=== PATIENT | male | born 1995 | race African-American/Black ===

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

== ENCOUNTER 2017-01-31 00:19 | Emergency (ER) | payer BC ==
[~2017-01-31] VITALS: Ht 182.9 cm; Wt 67.1 kg
[2017-01-31 00:39] VITALS: BP 127/82
[2017-01-31] MEDS ORDERED: TETANUS AND DIPHTHERIA TOX/PF 0.5 ML DISP.SYRIN. VAX IM ONE (01:00)
[2017-01-31] MEDS ORDERED: LIDOCAINE 1% / SOD BICARB 8.4% 20 ML VIAL. IJ ONE ×2 (01:26→02:00)
--- NOTE | 2017-01-31 01:59 | PHYS DOC ---
Past Medical History Past Medical History: No Pertinent History Past Surgical History: No Surgical History Alcohol Use: None Drug Use: None Adult General Chief Complaint Chief Complaint: GROIN PAIN HPI HPI 21-year-old male presenting to the emergency department with a 3 cm laceration to his scrotum that he reports happened when he was "wrestling". This occurred tonight. He has moderate to mild pain which is nonradiating intermittent and without alleviating factors. He denies accidentally cutting his scrotum. He denies any other she occasionally. Review of systems is negative for chest pain shortness of breath abdominal pain nausea vomiting. All other review of systems is negative unless otherwise noted in history of present illness. ED course: 21-year-old male presenting to the emergency department today with scrotal laceration. No other injuries noted. Mechanism of injury doesn't seem to match patient's story. I discussed the case with a urologist at [facility] because we do not have urology coverage here. I talked to Dr. Albarado recommended simple interrupted suture repair with absorbable sutures to follow-up with urology in 5-6 days. The wound is washed out in the emergency department in the laceration was repaired. The patient was in discharged home to follow-up with urology in 5 days. Review of Systems Review of Systems SEE ABOVE. Current Medications Current Medications Current Medications Medications (Trade) Dose Ordered Sig/Mago Start Time Stop Time Status Last Admin Dose Admin Lidocaine/Sodium Bicarbonate (Buffered Lidocaine 1%) 20 ml STK-MED ONCE 01/31/17 01:26 01/31/17 01:27 DC Tetanus/ Diphtheria Toxoids (Tenivac Syringe) 0.5 ml ONCE ONCE 01/31/17 01:00 01/31/17 01:01 DC 01/31/17 01:13 0.5 ML Allergies Allergies Allergies Coded Allergies Type Severity Reaction Last Updated Verified No Known Drug Allergies 05/18/16 No Physical Exam Physical Exam SEE ABOVE Constitutional: Well developed, well nourished, no acute distress, non-toxic appearance. [] HENT: Normocephalic, atraumatic, bilateral external ears normal, oropharynx moist, no oral exudates, nose normal. [] Eyes: PERRLA, EOMI, conjunctiva normal, no discharge. [] Neck: Normal range of motion, no tenderness, supple, no stridor. [] Cardiovascular:Heart rate regular rhythm, no murmur [] Lungs & Thorax: Bilateral breath sounds clear to auscultation [] Abdomen: Bowel sounds normal, soft, no tenderness, no masses, no pulsatile masses. [] exam: Penis is atraumatic and without any abnormalities. Scrotal sac shows 3 cm superficial laceration on the posterior aspect of the scrotum. No swelling erythema or any other abnormalities present. Testicles are normal in lie. Cremasteric reflex intact. Skin: Warm, dry, no erythema, no rash. [] Back: No tenderness, no CVA tenderness. [] Extremities: No tenderness, no cyanosis, no clubbing, ROM intact, no edema. [] Neurologic: Alert and oriented X 3, normal motor function, normal sensory function, no focal deficits noted. [] Psychologic: Affect normal, judgement normal, mood normal. [] Current Patient Data Vital Signs Vital Signs Date Time Temp Pulse Resp B/P (MAP) Pulse Ox O2 Delivery O2 Flow Rate FiO2 01/31/17 00:39 99.7 123 18 127/82 (97) 98 Room Air 99.7 EKG EKG [] Radiology/Procedures Radiology/Procedures [] Course & Med Decision Making Course & Med Decision Making Pertinent Labs and Imaging studies reviewed. (See chart for details) [] Dragon Disclaimer Dragon Disclaimer This electronic medical record was generated, in whole or in part, using a voice recognition dictation system. Departure Departure Impression: Primary Impression: Laceration of scrotum Disposition: HOME, SELF-CARE Condition: STABLE Referrals: UNKNOWN PCP NAME (PCP) Patient Instructions: Laceration Care, Adult Additional Instructions: Thank you for allowing us to participate in your care today. Followup with a urologist in 4-5 days at [facility]. Call [phone] to make an appointment. Call your Primary Doctor tomorrow and inform them of your visit today. If you do not have a primary care provider you can ask for a list of our primary care providers. Return to the emergency department you have any new or concerning findings. This should be evaluated by the primary care physician and any necessary consulting services for continued management within a few days after discharge. Return to emergency room if you have any new or concerning symptoms including but not limited to fever, chills, nausea, vomiting, intractable pain, any new rashes, chest pain, shortness of air, uncontrolled bleeding, difficulty breathing, and/or vision loss. Laceration Repair Lac Repair Indication: []Scrotal laceration Procedure: The patient was placed in the appropriate position and anesthesia around the laceration on the scrotum. 1% lidocaine was used. The area was cleansed with 1 L of saline along with Betadine. The laceration was then closed after verbal consultation with urology with absorbable sutures. 5 sutures placed. The wound area was then dressed with gauze dressing. Total repaired wound length: 3cm. Other Items: none The patient tolerated the procedure well. Complications: none. KENIA OZUNA MD Jan 31, 2017 01:59
== END 2017-01-31 02:13 | disposition home or self-care (01) ==
LOC: ER 00:19
DX: S31.31XA Laceration without foreign body of scrotum and testes, initial encounter (principal); X58.XXXA Exposure to other specified factors, initial encounter; Y93.72 Activity, wrestling; Y92.89 Other specified places as the place of occurrence of the external cause; Y99.8 Other external cause status
CPT/HCPCS: 12002; 90471; 90714; 99283-25